=== PATIENT | male | born 1980 | race Two or more races ===

== ENCOUNTER 2018-01-01 10:50 | Emergency (ER) | payer OTHER ==
[~2018-01-01] VITALS: Ht 172.7 cm; Wt 81.6 kg
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
[2018-01-01] MEDS ORDERED: LIDOCAINE /MPF 1% VIAL 5 ML VIAL ONE (12:12)
[2018-01-01] MEDS ORDERED: TDAP [DIPH/PERTUSSIS/TET] 0.5 ML VIAL IM ONE ×2 (12:21→12:30)
[2018-01-01] MEDS ORDERED: LIDOCAINE 1% INJ 50 ML MDV IJ ONE ×2 (12:30→13:14)
--- NOTE | 2018-01-01 12:30 | NUR ---
pt to ctscan
--- NOTE | 2018-01-01 13:09 | NUR ---
PT ALREADY RECIEVED TDAP 3WKS AGO
[2018-01-01 13:30] VITALS: BP 135/95
== END 2018-01-01 14:44 ==
LOC: ER 10:53
DX: S01.01XA Laceration without foreign body of scalp, initial encounter (principal); S01.81XA Laceration without foreign body of other part of head, initial encounter; F12.10 Cannabis abuse, uncomplicated; Z59.0 Homelessness; Z86.19 Personal history of other infectious and parasitic diseases; Z23 Encounter for immunization; Y04.0XXA Assault by unarmed brawl or fight, initial encounter; Y93.89 Activity, other specified; Y92.39 Other specified sports and athletic area as the place of occurrence of the external cause; Y99.8 Other external cause status
CPT/HCPCS: 12001; 70450; 72125; 99284; 99406; A4606; A6402; J3490 ×2; L0172; Z7610; 90715